=== PATIENT | male | born 1960 | race African-American/Black ===

== ENCOUNTER 2017-05-30 10:27 | Emergency (ER) | payer MEDICAID ==
[~2017-05-30] VITALS: Ht 177.8 cm; Wt 139.0 kg
[2017-05-30] MEDS ORDERED: DIATR MEGLU/DIATRIZOATE SOLN 30ML PO ONE (14:15)
[2017-05-30] MEDS ORDERED: BARIUM SULFATE 176 GM SUSP.RECON ONE (16:30)
[2017-05-30] MEDS ORDERED: EZ-HD SUSPENSION(BARIUM SULFATE 340GM) PO ONE (16:30)
[2017-05-30 17:29] VITALS: BP 146/85
== END 2017-05-30 18:20 | disposition home or self-care (01) ==
LOC: ER 12:44
DX: R13.10 Dysphagia, unspecified (principal); K44.9 Diaphragmatic hernia without obstruction or gangrene; I10 Essential (primary) hypertension; N41.9 Inflammatory disease of prostate, unspecified
CPT/HCPCS: 70360; 71045; 74220; 99284; Q9963

== ENCOUNTER 2021-06-18 00:36 | Emergency (ER) | payer MEDICAID, OTHER ==
[~2021-06-18] VITALS: Ht 177.8 cm; Wt 129.0 kg
[2021-06-18 01:28] LABS: BASOPHILS % 0.6 % (0.0-2.0); EOSINOPHILS % 2.4 % (0.0-5.0); HEMATOCRIT. 41.4 % (42.0-52.0); HEMOGLOBIN. 13.5 g/dL (14.0-18.0); MEAN CORPUSCULAR HEMOGLOBIN 27.6 pg (28.0-32.0); MEAN CORPUSCULAR VOLUME 84.6 fL (80.0-94.0); MONOCYTES % 7.2 % (2.0-8.0); NEUTROPHILS % 53.8 % (40.0-76.0); PLATELET 194 x1000/uL (130-400); RED CELL DISTRIBUTION WIDTH 14.2 % (11.6-14.6)
[2021-06-18 01:34] LABS: CHLORIDE 111 mEq/L (98-107)
[2021-06-18] MEDS ORDERED: HYDR-4001 MT (03:09)
[2021-06-18] MEDS ORDERED: FAMO40TA70 MT (03:09)
[2021-06-18 03:36] VITALS: BP 182/97
[2021-06-18] MEDS ORDERED: LISI10TA26 MT (03:44)
== END 2021-06-18 03:54 | disposition home or self-care (01) ==
LOC: ER 00:36
DX: R10.31 Right lower quadrant pain (principal); E11.9 Type 2 diabetes mellitus without complications; I10 Essential (primary) hypertension; N40.0 Benign prostatic hyperplasia without lower urinary tract symptoms
CPT/HCPCS: 36415; 74176; 80053; 85025; 99284

== ENCOUNTER 2022-06-25 00:51 | Emergency (ER) | payer OTHER ==
[~2022-06-25 00:51] MED LIST: FAMO40TA70 MT; HYDR-4001 MT; LISI10TA26 MT
[2022-06-25 01:19] LABS: BASOPHILS % 0.7 % (0.0-2.0); HEMATOCRIT. 42.2 % (42.0-52.0); HEMOGLOBIN. 14.5 g/dL (14.0-18.0); LYMPHOCYTES % 38.2 % (20.0-50.0); MEAN CORPUSCULAR HEMOGLOBIN 28.5 pg (28.0-32.0); MEAN CORPUSCULAR VOLUME 83.1 fL (80.0-94.0); MEAN PLATELET VOLUME 9.3 fl (7.4-10.4); MONOCYTES % 5.7 % (2.0-8.0); NEUTROPHILS % 53.4 % (40.0-76.0); PLATELET 196 x1000/uL (130-400); RED BLOOD CELL COUNT 5.08 mill/uL (4.7-6.1); RED CELL DISTRIBUTION WIDTH 13.8 % (11.6-14.6)
[2022-06-25 01:28] LABS: CHLORIDE 109 mEq/L (98-107)
[2022-06-25] MEDS ORDERED: TETRACAINE 0.5% OPHTH DROPS 4ML RIGHTEYE ONE (03:00)
== END 2022-06-25 04:51 | disposition home or self-care (01) ==
LOC: ER 00:51
DX: H43.391 Other vitreous opacities, right eye (principal); R07.89 Other chest pain; E11.9 Type 2 diabetes mellitus without complications; I10 Essential (primary) hypertension
CPT/HCPCS: 36415; 71045; 80053; 84484; 85025; 93005; 99285